=== PATIENT | male | born 1985 | race Caucasian/White ===

== ENCOUNTER 2019-03-04 23:36 | Emergency (ER) | payer OTHER ==
[2019-03-04 23:47] VITALS: BP 121/65; PULSE 101; TEMP 99.3; BMI 33.5
--- NOTE | 2019-03-05 03:36 | PDOC ---
Documentation entered by Villa Cardoso SCRIBE, acting as scribe for Ana Holloway MD. Ana Holloway MD: This documentation has been prepared by the Walker puentes Xhesika, SCRIBE, under my direction and personally reviewed by me in its entirety. I confirm that the documentation accurately reflects all work, treatment, procedures, and medical decision making performed by me. History of Present Illness - General Chief Complaint: Psychiatric Stated Complaint: ANXIETY Time Seen by Provider: 03/04/19 23:47 History Source: Patient Exam Limitations: No Limitations - History of Present Illness Initial Comments: 03/05/19 00:13 The patient is a 33 year old male, with a significant past medical history of anxiety and ADHD who presents to the emergency department with anxiety. The patient states he was in bed last night and felt a itch in his throat that did not allow him to sleep throughout the night. 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 The patient states, when he came home he had the chills and a subjective fever, took 3 tablets of Advil, with mild relief. The patient states he felt his heart beating fast while watching tv, however, he denies chest pain. The patient states he took his blood pressure and systolic reading ranged between 180-200s, which is atypically high for him. The patient states he experienced these symptoms in the past before when he was stressed, however, this time the symptoms did not resolve. The patient denies chest pain, shortness of breath, headache or dizziness. The patient denies nausea, vomit, diarrhea or constipation. The patient denies dysuria, frequency, urgency or hematuria. Allergies:NKDA. Seasonal allergies Past surgical history:None reported Social history: None reported Past History - Past Medical History Allergies/Adverse Reactions: Allergies Allergy/AdvReac Type Severity Reaction Status Date / Time No Known Allergies Allergy Unverified 03/04/19 23:37 Home Medications: Ambulatory Orders Lisdexamfetamine Dimesylate [Vyvanse] 60 mg PO WEEKLY 03/04/19 Vortioxetine Hydrobromide [Trintellix] 10 mg PO DAILY 03/04/19 COPD: No Psychiatric Problems: Yes (ANXIETY,ADHD) - Immunization History Immunization Up to Date: Yes - Suicide/Smoking/Psychosocial Hx Smoking History: Unknown if ever smoked Have you smoked in the past 12 months: No Number of Cigarettes Smoked Daily: 0 Information on smoking cessation initiated: No Hx Alcohol Use: No Drug/Substance Use Hx: No Review of Systems - Review of Systems Able to Perform ROS?: Yes Comments:: 03/05/19 00:13 GENERAL/CONSTITUTIONAL: (+) subjective fever or chills. No weakness. HEAD, EYES, EARS, NOSE AND THROAT: No change in vision. No ear pain or discharge. No sore throat. CARDIOVASCULAR: (+) chest palpitations. No shortness of breath. RESPIRATORY: No cough, wheezing, or hemoptysis. GASTROINTESTINAL: No nausea, vomiting, diarrhea or constipation. GENITOURINARY: No dysuria, frequency, or change in urination. MUSCULOSKELETAL: No joint or muscle swelling or pain. No neck or back pain. SKIN: No rash NEUROLOGIC: No headache, vertigo, loss of consciousness, or change in strength/ sensation. ENDOCRINE: No increased thirst. No abnormal weight change. HEMATOLOGIC/LYMPHATIC: No anemia, easy bleeding, or history of blood clots. ALLERGIC/IMMUNOLOGIC: No hives or skin allergy. *Physical Exam - Vital Signs Last Vital Signs Temp Pulse Resp BP Pulse Ox 99.3 F 101 H 15 121/65 99 03/04/19 23:37 03/04/19 23:37 03/04/19 23:37 03/04/19 23:37 03/04/19 23:37 - Physical Exam Comments: 03/05/19 00:14 GENERAL: Awake, alert, and fully oriented, in no acute distress HEAD: No signs of trauma EYES: PERRLA, EOMI, sclera anicteric, conjunctiva clear ENT: Auricles normal inspection, hearing grossly normal, nares patent. (+) moderate erythematous oropharynx without exudates or edema. Moist mucosa NECK: Normal ROM, supple, no lymphadenopathy, JVD, or masses LUNGS: Breath sounds equal, clear to auscultation bilaterally. No wheezes, and no crackles HEART: Regular rate and rhythm, normal S1 and S2, no murmurs, rubs or gallops ABDOMEN: Soft, nontender, normoactive bowel sounds. No guarding, no rebound. No masses EXTREMITIES: Normal range of motion, no edema. No clubbing or cyanosis. No cords, erythema, or tenderness NEUROLOGICAL: Cranial nerves II through XII grossly intact. Normal speech, normal gait 12 lead EKG performed and interpreted by me:NSR at 89 bpm; axis, intervals and waveforms are all normal. No evidence of acute ST or T wave abnormalities. No evidence of acute cardiac arrythmia Medical Decision Making - Medical Decision Making As noted above, this 33 y.o. man presents with episode of rapid, regular heartbeat at home just prior to presentation. The patient also used his father' s home BP monitor : systolic BP readings reportedly 180 -200mm Hg. The patient admits to history of anxiety and of feeling increasingly nervous as his BP was being measured. Furthermore, the patient was unable to sleep last night ( probably secondary to symptoms of pharyngitis); he consumed more caffeine and less water than he usually does during the day today. He is prescribed(and takes daily) Vyvanse and Trintellix for ADHD/anxiety Exam notable for mild tachycardia(101/min) but normal BP and mild oropharyngeal erythema without exudate/edema. Cardiac and Lung exams are normal EKG as noted above is normal. Throat culture sent because patient works around [employer] students and has had strep pharyngitis as an adult. Clinical presentation consistent with pharyngitis(likely viral, less likely strep or allergic) with associated mild dehydration(secondary to possible low grade fever/inadequate fluid intake)and mild sinus tachycardia(exacerbated by anxiety). The patient was discharged with advice to rest and drink plenty of water. He will be contacted if culture positive for strep. He should return to ER if he has prolonged palpitations or develops associated symptoms. He should followup with his doctor within the next 3 days. *DC/Admit/Observation/Transfer Diagnosis at time of Disposition: Pharyngitis, Anxiety - Discharge Dispostion Disposition: HOME Condition at time of disposition: Stable - Referrals - Patient Instructions Printed Discharge Instructions: DI for Pharyngitis/Tonsillopharyngitis -- Adult , DI for Anxiety -- Adult Additional Instructions: rest; drink plenty of water avoid excessive consumption of caffeine ibuprofen/acetaminophen as needed for fever or throat pain followup with your doctor within 2-3 days return to ER if you have severe throat pain/ persistent fast or irregular heartbeats, pain or shortness of breath - Post Discharge Activity
--- NOTE | 2019-03-05 13:42 | EKG ---
Test Reason : Blood Pressure : / mmHG Vent. Rate : 089 BPM Atrial Rate : 089 BPM P-R Int : 154 ms QRS Dur : 110 ms QT Int : 352 ms P-R-T Axes : 060 -04 054 degrees QTc Int : 428 ms NORMAL SINUS RHYTHM NORMAL ECG NO PREVIOUS ECGS AVAILABLE Confirmed by MARLINE MOSQUERA MD ([id number]) on 03/05/2019 1:42:30 PM Referred By: MD MARTINS Confirmed By:MARLINE MOSQUERA MD
== END 2019-03-05 00:51 | disposition home or self-care (01) ==
LOC: FER 23:36
DX: J02.9 Acute pharyngitis, unspecified (principal); F41.9 Anxiety disorder, unspecified; F90.9 Attention-deficit hyperactivity disorder, unspecified type
CPT/HCPCS: 87070; 87077; 87880; 93005; 99283-25